=== PATIENT | male | born 1985 | race Caucasian/White ===

== ENCOUNTER 2024-06-10 09:26 | Emergency (ER) | payer SELFPAY ==
[~2024-06-10] VITALS: Ht 170.2 cm; Wt 83.5 kg
[2024-06-10 09:26] VITALS: BP_SYST 162; PULSE 92; RESP 20; TEMP 96.8; O2SAT 96
[2024-06-10 10:05] LABS: BASOPHILS # (AUTO) 0.1 K/uL (0.0-0.2); BASOPHILS % (AUTO) 0.5 % (0.0-2.0); EOSINOPHILS # (AUTO) 0.3 K/uL (0.0-0.4); EOSINOPHILS % (AUTO) 2.6 % (0.0-4.0); HEMATOCRIT 45.7 % (36-54); HEMOGLOBIN 15.2 g/dL (14.0-18.0); LYMPHOCYTES # (AUTO) 1.6 K/uL (1.0-5.5); LYMPHOCYTES % (AUTO) 12.2 % (20.5-51.5); MEAN CORPUSCULAR HEMOGLOBIN 32 pg (27-31); MEAN CORPUSCULAR HGB CONC 33 % (32-36); MEAN CORPUSCULAR VOLUME 98 fL (79.0-98.0); MONOCYTES % (AUTO) 7.9 % (1.7-9.3); NEUTROPHILS % (AUTO) 76.8 % (40.0-70.0); PLATELET COUNT (AUTO) 192 K/uL (130-430); RED BLOOD CELL COUNT(AUTO) 4.68 MIL/uL (4.2-6.2); RED CELL DISTRIBUTION WIDTH 13.5 % (9.0-15.0)
[2024-06-10 10:20] LABS: PROTHROMBIN TIME 10.1 SECS (9.5-12.5)
[2024-06-10 10:32] LABS: ALANINE AMINOTRANSFERASE 25 U/L (12-78); ALBUMIN 3.7 g/dL (3.4-4.8); ANION GAP 9 (5-15); ASPARTATE AMINOTRANSFERASE 22 U/L (10-37); BILIRUBIN,DIRECT 0.1 mg/dL (0.0-0.3); CARBON DIOXIDE 25 mmol/L (23-29); CHLORIDE 105 mmol/L (98-107); CREATINE KINASE, TOTAL 164 U/L (39-308); CREATININE 1.27 mg/dL (0.55-1.30); GFR AFRICAN AMERICAN 80 mL/min (>90); GLUCOSE 115 mg/dL (74-106); POTASSIUM 4.4 mmol/L (3.5-5.1); SODIUM SERUM 139 mmol/L (136-145); TOTAL BILIRUBIN 0.4 mg/dL (0.0-1.0); UREA NITROGEN, BLOOD 21 mg/dL (8-21)
[2024-06-10 10:34] LABS: INFLUENZA TYPE A Negative (NEGATIVE); INFLUENZA TYPE B NEGATIVE (NEGATIVE)
[2024-06-10 10:36] LABS: GFR NON AFRICAN-AMERICAN 66 mL/min (>90)
[2024-06-10 11:25] LABS: COVID19 ANTIGEN SOFIA FIA NEGATIVE (NEGATIVE)
[2024-06-10 11:45] VITALS: BP_SYST 149; PULSE 89; RESP 18; TEMP 97.5; O2SAT 97
== END 2024-06-10 11:46 | disposition home or self-care (01) ==
LOC: SED 09:26
DX: R06.02 Shortness of breath (principal); R07.89 Other chest pain; F41.9 Anxiety disorder, unspecified; Z20.822 Contact with and (suspected) exposure to COVID-19
CPT/HCPCS: 36415; 71045; 80048; 80076; 82550; 83605; 83880; 84484; 85025; 85379; 85610; 85730; 93005; 99285